=== PATIENT | female | born 1940 | race Caucasian/White ===

== ENCOUNTER 2016-05-19 11:58 | Emergency (ER) | payer MEDICARE ==
--- NOTE | 2016-05-19 13:16 | DIAGNOSTIC IMAGING REPORT ---
PROCEDURE: CT HEAD WITHOUT CONTRAST INDICATION: MENTAL STATUS CHANGE, initial encounter TECHNIQUE: Noncontrast axial images with sagittal and coronal reformations. COMPARISON: None. FINDINGS: Normal sulci and ventricular system. Moderate white matter chronic ischemic changes. There is no acute CVA, hemorrhage, mass or midline shift. Visualized mastoids and sinuses are clear. IMPRESSION: 1. No acute intracranial abnormality 2. Moderate white matter chronic ischemic changes 3. Findings discussed with Dr. Cho at 01:05 p.m.[facility] Time
--- NOTE | 2016-05-19 13:16 | DIAGNOSTIC IMAGING REPORT ---
PROCEDURE: CT HEAD WITHOUT CONTRAST INDICATION: MENTAL STATUS CHANGE, initial encounter TECHNIQUE: Noncontrast axial images with sagittal and coronal reformations. COMPARISON: None. FINDINGS: Normal sulci and ventricular system. Moderate white matter chronic ischemic changes. There is no acute CVA, hemorrhage, mass or midline shift. Visualized mastoids and sinuses are clear. IMPRESSION: 1. No acute intracranial abnormality 2. Moderate white matter chronic ischemic changes 3. Findings discussed with Dr. Cho at 01:05 p.m.[facility] Time
--- NOTE | 2016-05-19 13:18 | DIAGNOSTIC IMAGING REPORT ---
PROCEDURE: XR CHEST 2 VIEW INDICATION: SHORTNESS OF BREATH, initial encounter TECHNIQUE: PA and lateral view. COMPARISON: None. FINDINGS: Lungs are clear. Heart size, mediastinum and pulmonary vessels are normal. Tortuous aorta. Right axillary soft tissue calcification. Chronic left rotator cuff tear. IMPRESSION: 1. No acute changes
--- NOTE | 2016-05-19 14:18 | ED NURSING NOTES ---
Clinical Report - Nurses [facility] [address] [place] [address] 05/19/2016 12:04 Patient: VERONICA GARCIA TRIAGE Triage time 12:04. Acuity: LEVEL 3. Chief Complaint: BACK PAIN and (both legs hurt, both hips, and left rib pain). Alert. --12:12 Heidy Davenport R.N. 12:03 05/19/16. BP: 144/87. HR: 102. RR: 20. O2 saturation: 96%. Temp: 98.9 F. Pain level now: 12/06. --12:12 Heidy Davenport R.N. Weight: 86.1 kg stated. Height/Length: 66 inches. BMI: 30.7. --12:04 Heidy Davenport R.N. Medications CloNIDine HCl Oral (Tablet 0.1 mg), 3x a day as needed, BP. --12:18 Heidy Davenport R.N. Fioricet 50-325-40mg w/caffeine. --12:20 Heidy Davenport R.N. Flexeril 5 mg po q12hrs prn. --12:21 Heidy Davenport R.N. Lisinopril Oral 10 mg, daily. --12:21 Heidy Davenport R.N. Lovenox Subcutaneous 30 mg, , for DVT, last dose today. --12:22 Heidy Davenport R.N. Oxycontin ER 10 mg BID, on hold. --12:26 Heidy Davenport R.N. TraMADol HCl Oral 50 mg, 4x a day as needed, pain. --12:26 Heidy Davenport R.N. Allergies Morphine and Related. --12:07 Heidy Davenport R.N. History Arrived by EMS, and (A47). Historian: patient. Primary physician (Dr Jesse Dougherty, in [place]). ( Pt flew in from [place] yesterday). This started yesterday. No history of recent trauma. PAST MEDICAL HX: Immunizations: up-to-date. SOCIAL HX: Never smoker. No alcohol use or drug use. FUNCTIONAL ASSESSMENT: Functional assessment: no impairments noted. LEARNING NEEDS ASSESSMENT: The learning needs assessment revealed no barriers. --12:12 Heidy Davenport R.N. 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 --12:12 Heidy Davenport R.N. PROBLEMS: Arthritis. --12:08 Heidy Davenport R.N. Interventions ID band on patient. To room. --12:12 Heidy Davenport R.N. PHYSICAL ASSESSMENT 12:12 05/19/16. GENERAL / NEURO / PSYCH: Alert. Oriented X 4. Appears anxious. --12:12 Heidy Davenport R.N. NURSING PROGRESS NOTES 12:05/19/16. Patient identifiers checked. Call light placed in reach. Bed placed in lowest position. Patient ready for evaluation- chart flagged. --12:12 Heidy Davenport R.N. Patient transported to radiology by stretcher with tech. Not transported from ED with nurse. --12:31 Heidy Davenport R.N. 12:59 05/19/2016 Site #1 started via IV in the right wrist with an 20g angiocath, with aseptic technique and good blood return. Blood drawn: rainbow set. Labeled in the presence of the patient and sent to the lab. Saline lock flushed with 10 mL saline. --12:59 Heidy Davenport R.N. EKG time: (1301). EKG was ordered, performed by a tech and shown to the ED physician. --13:08 Nelly Miller Care transferred and report given (to Pee Ceballos, EDRN). --13:19 Heidy Davenport R.N. 13:17 05/19/2016 Started bag #1 1000 mL IV Fluids IV NS (Saline); at 1000 mL/hr over 60 minute(s) via site #1. Allergies verified and confirmed 5 rights. IV patency established. IV site checked: no pain, redness, or swelling. IV flushed thoroughly pre- and post-medication administration. --13:22 Pee Bearden R.N. 13:18 05/19/2016 Zofran (Ondansetron HCl) IVP 4 mg given over 2 minute(s) via site #1. Allergies verified and confirmed 5 rights. IV patency established. IV site checked: no pain, redness, or swelling. IV flushed thoroughly pre- and post-medication administration. IVP given by RN. --13:23 Pee Bearden R.N. 13:20 05/19/16. ( Pt asking for "Excedrin", ERMD notified and does not want her to have that. Pt offered her Tramadol, but she refused, stating "That doesn't work!"). --13:20 Heidy Davenport R.N. 14:13 05/19/16. Patient ID band checked for patient name, birthdate and medical record number: patient confirmed. Catheterized urine collected with return of yellow-colored clear urine; odor is normal; sample sent to lab for urinalysis and culture. Specimen labeled in the presence of the patient (Pt appears to have a yeast infection. Cath by RADHA Ribera). --14:33 Pee Bearden R.N. 14:00 05/19/16. BP: 128/84. HR: 88. RR: 18. O2 saturation: 95% on room air. Pain level now: 7/10. Additional comments: Pt5 refuses to wear O2. --15:42 Pee Bearden R.N. 14:30 05/19/2016 IV Fluids IV NS Discontinued: bag #1 infused. Total amount infused: 1000 mL. IV patency established. IV site checked: no pain, redness, or swelling. IV flushed thoroughly. --19:14 Pee Bearden R.N. 17:14 05/19/2016 Started 1 gm of Ceftriaxone IVPB in bag #1 50 mL; at 100 mL/hr over 30 minute(s) via site #1; Allergies verified and confirmed 5 rights. IV patency established. IV site checked: no pain, redness, or swelling. IV flushed thoroughly pre- and post-medication administration. --17:24 Pee Bearden R.N. 17:19 05/19/2016 Oxycodone-APAP (Oxycodone-Acetaminophen) PO 5/325 mg Tablets 1 tab given. Allergies verified, confirmed 5 rights and sedative warning given. --17:24 Pee Beardne R.N. 17:20 05/19/2016 Lovenox (Enoxaparin Sodium) Subcutaneous 60 mg given. Given in the left abdomen. Allergies verified and confirmed 5 rights. --17:30 Pee Bearden R.N. 15:00 05/19/16. BP: 136/78. HR: 87. RR: 20. O2 saturation: 94% on room air. Pain level now: 11/05. --18:56 Pee Bearden R.N. 16:00 05/19/16. BP: 146/84. HR: 92. RR: 18. O2 saturation: 95% on room air. Pain level now: 10/06. --18:58 Pee Bearden R.N. 17:00 05/19/16. BP: 148/85. HR: 92. RR: 18. O2 saturation: 95% on room air. Pain level now: 11/05. --19:09 Pee Bearden R.N. 18:05 05/19/2016 Site #[address] upon discharge; patent, no pain and no signs of infection or infiltration. Good blood return present. Converted to saline lock and flushed with 10 mL saline; flushes easily. --19:12 Pee Bearden R.N. DISPOSITION / DISCHARGE 18:00 05/19/16. BP: 145/82. HR: 91. RR: 16. O2 saturation: 95% on room air. Temp: 98.6 F (oral). Additional comments: Pt refuses to wear O2. --18:33 Pee Bearden R.N. Departure time: 1805. --18:33 Pee Bearden R.N. 18:05. Condition at departure: improved. No learning barriers present. The patient was discharged by the physician. Transferred. Summary of care provided to transport team via paper ([place], [place]). Transported via ambulance. Report was given to a nurse via a phone call. Report included patient's care, treatment, medications, reviewed medication reconcilliation, and condition (including any recent changes or anticipated changes). All questions were answered. Report was acknowledged and care was transferred. (RADHA Jeong). --18:36 Pee Bearden R.N. 18:05 05/19/16. Pain level now: 10/06. --19:16 Pee Bearden R.N. Locked/Released at 05/19/2016 19:16 by Pee Bearden R.N.
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
--- NOTE | 2016-05-19 14:19 | ED ORDER SUMMARY ---
..... Patient: VERONICA GARCIA OrderSheet [facility] VisitID: [id number] [address] [place] [address] 76y, F Registration Date/Time: 05/19/2016 ORDER SHEET Weight: 86.1 kg (stated) Allergies: Morphine and Related GENERAL ORDERS: Chest 1V Urgent (12:05/19/2016 PHutchinson DO) (12:25 PHutchinson DO) (Cancelled: Other12: PHutchinson DO) Supervisor Personnel Clerks (Continuous) (12:05/19/2016 PHutchinson DO) (Ack 12:27 TBergley) (13:22 JRomanelli R.N.) CT Head wo Cont Urgent (:05/19/2016 PHutchinson DO) (Ack 12:27 TBergley) (15:10 Kay) UA-Culture if indicated Urgent (12:05/19/2016 PHutchinson DO) (Ack 12:27 TBergley) (15:58 TBergley) Cardiac Panel Stat (12:05/19/2016 PHutchinson DO) (Ack 12:27 TBergley) (13:22 JRomanelli R.N.) BNP Urgent (12:05/19/2016 PHutchinson DO) (Ack 12:27 TBergley) (13:22 JRomanelli R.N.) D-Dimer Urgent (12:05/19/2016 PHutchinson DO) (Ack 12:27 TBergley) (13:22 JRomanelli R.N.) Amylase Urgent (12:05/19/2016 PHutchinson DO) (Ack 12:27 TBergley) (13:22 JRomanelli R.N.) PT with INR Urgent (12:05/19/2016 PHutchinson DO) (Ack 12:27 TBergley) (13:22 JRomanelli R.N.) TSH Urgent (12:05/19/2016 PHutchinson DO) (Ack 12:27 TBergley) (13:22 JRomanelli R.N.) Urine Drug Screen Urgent (12:20 05/19/2016 [facility]) (Ack 12:27 TBergley) (15:58 TBergley) Oxygen (2 L/min) (NC) (12:20 [facility]/2016 [facility]) (Ack 12:27 TBergley) (13:22 JRomanelli R.N.) Pulse oximeter (12:20 05/19/2016 [facility]) (Ack 12:27 TBergley) (13:22 JRomanelli R.N.) EKG - ER Stat (12:20 05/19/2016 [facility]) (Ack 12:27 TBergley) (15:18 TBergley) Vitals (12:05/19/2016 [facility]) (Ack 12:27 TBergley) (13:22 JRomanelli R.N.) Chest 2V Urgent (12:26 05/19/2016 [facility]) (Ack 12:27 TBergley) (15:10 Kay) US Venous Bilat (recent airline flight) Urgent (12:59 05/19/2016 [facility]) (15:10 Kay) MEDICATION ORDERS: Lovenox Subcut 60 mg (HIGH ALERT MEDICATION, NOW) (14:33 05/19/2016 [facility]) (17:30 JRomanelli R.N.) Oxycodone-APAP PO 5/325 mg (NOW) (14:40 05/19/2016 [facility]) (17:24 JRomanelli R.N.) IV FLUIDS: IV Saline Lock (12:20 05/19/2016 [facility]) (12:59 LSullivan R.N.) IV NS : initial bolus 1000 mL (1000 mL/hr), then 250 mL/hr for X3 (NOW) (12:29 05/19/2016 [facility]) (13:22 JRomanelli R.N.) Zofran IV 4 mg (NOW) (12:56 05/19/2016 [facility]) (13:23 Dollyelli R.N.) Ceftriaxone IV 1 gm/50mL (NOW) (14:35 05/19/2016 Greg SAHNI) (17:24 Jamil Cruz) ORDER SHEET NOTES: [Electronically signed by Pee Bearden R.N. (19:16 05/19/2016)] [Electronically signed by Mikel Cho DO (07:34 05/21/2016)] [Electronically locked/signed by Pee Bearden R.N. (19:16 05/19/2016)]
--- NOTE | 2016-05-19 14:19 | ED ORDER SUMMARY ---
..... Patient: VERONICA GARCIA OrderSheet [facility] VisitID: [id number] [address] [place] [address] 76y, F Registration Date/Time: 05/19/2016 ORDER SHEET Weight: 86.1 kg (stated) Allergies: Morphine and Related GENERAL ORDERS: Chest 1V Urgent (12:05/19/2016 PHutchinson DO) (12:25 PHutchinson DO) (Cancelled: Other12: PHutchinson DO) Lead Carpenter (Continuous) (12:05/19/2016 PHutchinson DO) (Ack 12:27 TBergley) (13:22 JRomanelli R.N.) CT Head wo Cont Urgent (:05/19/2016 PHutchinson DO) (Ack 12:27 TBergley) (15:10 Kay) UA-Culture if indicated Urgent (12:05/19/2016 PHutchinson DO) (Ack 12:27 TBergley) (15:58 TBergley) Cardiac Panel Stat (12:05/19/2016 PHutchinson DO) (Ack 12:27 TBergley) (13:22 JRomanelli R.N.) BNP Urgent (12:05/19/2016 PHutchinson DO) (Ack 12:27 TBergley) (13:22 JRomanelli R.N.) D-Dimer Urgent (12:05/19/2016 PHutchinson DO) (Ack 12:27 TBergley) (13:22 JRomanelli R.N.) Amylase Urgent (12:05/19/2016 PHutchinson DO) (Ack 12:27 TBergley) (13:22 JRomanelli R.N.) PT with INR Urgent (12:05/19/2016 PHutchinson DO) (Ack 12:27 TBergley) (13:22 JRomanelli R.N.) TSH Urgent (12:05/19/2016 PHutchinson DO) (Ack 12:27 TBergley) (13:22 JRomanelli R.N.) Urine Drug Screen Urgent (12:20 05/19/2016 [facility]) (Ack 12:27 TBergley) (15:58 TBergley) Oxygen (2 L/min) (NC) (12:20 05/19/2016 [facility]) (Ack 12:27 TBergley) (13:22 JRomanelli R.N.) Pulse oximeter (12:20 05/19/2016 [facility]) (Ack 12:27 TBergley) (13:22 JRomanelli R.N.) EKG - ER Stat (12:20 05/19/2016 [facility]) (Ack 12:27 TBergley) (15:18 TBergley) Vitals (12:05/19/2016 [facility]) (Ack 12:27 TBergley) (13:22 JRomanelli R.N.) Chest 2V Urgent (12:26 05/19/2016 [facility]) (Ack 12:27 TBergley) (15:10 Kay) [place] Venous Bilat (recent airline flight) Urgent (12:59 05/19/2016 [facility]) (15:10 Kay) MEDICATION ORDERS: Lovenox Subcut 60 mg (HIGH ALERT MEDICATION, NOW) (14:33 05/19/2016 [facility]) (17:30 JRomanelli R.N.) Oxycodone-APAP PO 5/325 mg (NOW) (14:40 05/19/2016 [facility]) (17:24 JRomanelli R.N.) IV FLUIDS: IV Saline Lock (12:20 05/19/2016 [facility]) (12:59 LSullivan R.N.) IV NS : initial bolus 1000 mL (1000 mL/hr), then 250 mL/hr for X3 (NOW) (12:29 05/19/2016 [facility]) (13:22 JRomanelli R.N.) Zofran IV 4 mg (NOW) (12:56 05/19/2016 [facility]) (13:23 Dollyelli R.N.) Ceftriaxone IV 1 gm/50mL (NOW) (14:35 05/19/2016 Greg SAHNI) (17:24 Jamil Cruz) ORDER SHEET NOTES: [Electronically signed by Pee Bearden R.N. (19:16 05/19/2016)] [Electronically signed by Mikel Cho DO (07:34 05/21/2016)] [Electronically locked/signed by Pee Bearden R.N. (19:16 05/19/2016)]
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
--- NOTE | 2016-05-21 07:34 | ED DISCHARGE INSTRUCTIONS ---
Patient: VERONICA GARCIA General Instructions [facility] VisitID: [id number] [address] [place] [address] 76y, F Registration Date/Time: 05/19/2016 Moderate dehydration. Acute urinary tract infection with cystitis. Contusion to the anterior chest. Elevated d-dimer Recent subdural hematoma - now resolved by CT Recent DVT - no evidence now on Ultrasound Chronic pain with chronic opioid use. (Electronically signed by Mikel Cho DO 05/21/2016 7:34)
--- NOTE | 2016-05-21 07:34 | ED MED RECONCILIATION SUMMARY ---
Patient: VERONICA GARCIA Medication Reconciliation Report [facility] VisitID: [id number] [address] [place] [address] 76y, F Registration Date/Time: 05/19/2016 Weight: 86.1 kg Height/Length: 66 in. BMI: 30.7 ALLERGIES: Morphine and Related The patient's Home Medications are listed below: THE FOLLOWING MEDICATIONS NEED TO BE RECONCILED: CloNIDine HCl Oral (0.1 mg), 3x a day, BP Fioricet 50-325-40mg w/caffeine Flexeril 5 mg po q12hrs prn Lisinopril Oral 10 mg, daily Lovenox Subcutaneous 30 mg, for DVT, last dose today Oxycontin ER 10 mg BID, on hold TraMADol HCl Oral 50 mg, 4x a day, pain The source(s) of the original Home Medication information: Not obtained. The following Medications were given to the patient in the Emergency Department: IV NS IV Fluids bolus 0, then 1000 mL/hr, administered: 05/19/2016 1:17:00 PM Zofran [IVP] IVP 4 mg, administered: 05/19/2016 1:18:00 PM Ceftriaxone [IVPB] IVPB bolus 0, then 1 gm 100 mL/hr, administered: 05/19/2016 5:14:00 PM Oxycodone-APAP [PO] PO 1 tab, administered: 05/19/2016 5:19:00 PM Lovenox [Subcutaneous] Subcutaneous 60 mg, administered: 05/19/2016 5:20:00 PM The following Medications were prescribed to the patient: None.
--- NOTE | 2016-05-21 07:34 | ED MAR SUMMARY ---
..... Medication Administration Record [facility] [address] [place] [address] Patient: VERONICA GARCIA Visit ID: [id number] 76y, F Weight: 86.1 kg Height/Length: 66 in BMI: 30.7 ALLERGIES: Morphine and Related Start 13:17 05/19/2016 Pee Bearden R.N., Stop 14:30 05/19/2016 Pee Beraden R.N. Medication Administered: IV NS (SALINE), Dose: IV Fluids over 60 minute(s), Rate: 1000 mL/hr, Dispensed: 1000 mL bag, Site: #1 right wrist. Medication Ordered: IV NS : initial bolus 1000 mL (1000 mL/hr), then 250 mL/hr for X3 (NOW). Given 13:18 05/19/2016 Pee Bearden R.N. Medication Administered: ZOFRAN [IVP] (ONDANSETRON HCL), Dose: 4 mg IVP over 2 minute(s), Site: #1 right wrist. Medication Ordered: Zofran IV 4 mg (NOW). Start 17:14 05/19/2016 Pee Bearden R.N. Medication Administered: CEFTRIAXONE [IVPB], Dose: 1 gm IVPB over 30 minute(s), Rate: 100 mL/hr, Dispensed: 50 mL bag, Site: #1 right wrist. Medication Ordered: Ceftriaxone IV 1 gm/50mL (NOW). Given 17:05/19/2016 Pee Bearden R.N. Medication Administered: OXYCODONE-APAP [PO] (OXYCODONE-ACETAMINOPHEN), Dose: 1 tab 5/325 mg Tablets PO. Medication Ordered: Oxycodone-APAP PO 5/325 mg (NOW). Given 17:05/19/2016 Pee Bearden R.N. Medication Administered: LOVENOX [SUBCUTANEOUS] (ENOXAPARIN SODIUM), Dose: 60 mg Subcutaneous. Medication Ordered: Lovenox Subcut 60 mg (HIGH ALERT MEDICATION, NOW).
--- NOTE | 2016-05-21 07:34 | ED MED RECONCILIATION SUMMARY ---
Patient: VERONICA GARCIA Medication Reconciliation Report [facility] VisitID: [id number] [address] [place] [address] 76y, F Registration Date/Time: 05/19/2016 Weight: 86.1 kg Height/Length: 66 in. BMI: 30.7 ALLERGIES: Morphine and Related The patient's Home Medications are listed below: THE FOLLOWING MEDICATIONS NEED TO BE RECONCILED: CloNIDine HCl Oral (0.1 mg), 3x a day, BP Fioricet 50-325-40mg w/caffeine Flexeril 5 mg po q12hrs prn Lisinopril Oral 10 mg, daily Lovenox Subcutaneous 30 mg, for DVT, last dose today Oxycontin ER 10 mg BID, on hold TraMADol HCl Oral 50 mg, 4x a day, pain The source(s) of the original Home Medication information: Not obtained. The following Medications were given to the patient in the Emergency Department: IV NS IV Fluids bolus 0, then 1000 mL/hr, administered: 05/19/2016 1:17:00 PM Zofran [IVP] IVP 4 mg, administered: 05/19/2016 1:18:00 PM Ceftriaxone [IVPB] IVPB bolus 0, then 1 gm 100 mL/hr, administered: 05/19/2016 5:14:00 PM Oxycodone-APAP [PO] PO 1 tab, administered: 05/19/2016 5:19:00 PM Lovenox [Subcutaneous] Subcutaneous 60 mg, administered: 05/19/2016 5:20:00 PM The following Medications were prescribed to the patient: None.
--- NOTE | 2016-05-21 07:34 | ED MAR SUMMARY ---
..... Medication Administration Record [facility] [address] [place] [address] Patient: VERONICA GARCIA Visit ID: [id number] 76y, F Weight: 86.1 kg Height/Length: 66 in BMI: 30.7 ALLERGIES: Morphine and Related Start 13:17 05/19/2016 Pee Bearden R.N., Stop 14:30 05/19/2016 Pee Bearden R.N. Medication Administered: IV NS (SALINE), Dose: IV Fluids over 60 minute(s), Rate: 1000 mL/hr, Dispensed: 1000 mL bag, Site: #1 right wrist. Medication Ordered: IV NS : initial bolus 1000 mL (1000 mL/hr), then 250 mL/hr for X3 (NOW). Given 13:18 05/19/2016 Pee Bearden R.N. Medication Administered: ZOFRAN [IVP] (ONDANSETRON HCL), Dose: 4 mg IVP over 2 minute(s), Site: #1 right wrist. Medication Ordered: Zofran IV 4 mg (NOW). Start 17:14 05/19/2016 Pee Bearden R.N. Medication Administered: CEFTRIAXONE [IVPB], Dose: 1 gm IVPB over 30 minute(s), Rate: 100 mL/hr, Dispensed: 50 mL bag, Site: #1 right wrist. Medication Ordered: Ceftriaxone IV 1 gm/50mL (NOW). Given 17:05/19/2016 Pee Bearden R.N. Medication Administered: OXYCODONE-APAP [PO] (OXYCODONE-ACETAMINOPHEN), Dose: 1 tab 5/325 mg Tablets PO. Medication Ordered: Oxycodone-APAP PO 5/325 mg (NOW). Given 17:05/19/2016 Pee Bearden R.N. Medication Administered: LOVENOX [SUBCUTANEOUS] (ENOXAPARIN SODIUM), Dose: 60 mg Subcutaneous. Medication Ordered: Lovenox Subcut 60 mg (HIGH ALERT MEDICATION, NOW).
--- NOTE | 2016-05-21 07:34 | ED DISCHARGE INSTRUCTIONS ---
Patient: VERONICA GARCIA General Instructions [facility] VisitID: [id number] [address] [place] [address] 76y, F Registration Date/Time: 05/19/2016 Moderate dehydration. Acute urinary tract infection with cystitis. Contusion to the anterior chest. Elevated d-dimer Recent subdural hematoma - now resolved by CT Recent DVT - no evidence now on Ultrasound Chronic pain with chronic opioid use. (Electronically signed by Mikel Cho DO 05/21/2016 7:34)
== END 2016-05-19 18:05 | disposition short-term general hospital (02) ==
LOC: ED SRH 11:58
DX: E86.0 Dehydration (principal); I10 Essential (primary) hypertension; N30.00 Acute cystitis without hematuria; S20.219A Contusion of unspecified front wall of thorax, initial encounter; V89.2XXA Person injured in unspecified motor-vehicle accident, traffic, initial encounter; Y92.410 Unspecified street and highway as the place of occurrence of the external cause; Y93.I9 Activity, other involving external motion; Y99.9 Unspecified external cause status; Z86.718 Personal history of other venous thrombosis and embolism; G89.29 Other chronic pain
CPT/HCPCS: 81460; 90004; 90100; 90148; 90469; 90616; 91320; 91556; 92530; 92610; 92720; 92760; 92761; 92762; 92763; 92764; 92765; 92766; 92767; 93140; 94060; 95059